=== PATIENT | male | born 1965 | race Hispanic/Latino ===

== ENCOUNTER 2021-12-18 08:22 | Outpatient (CLI) | payer BC ==
[2021-12-18] MEDS ORDERED: Iopamidol 370 76% 100 ML VIAL ONE (15:13)
== END 2021-12-18 08:23 | disposition home or self-care (01) ==
LOC: CT 08:22
PROVIDERS: ATTEND Internal Medicine
DX: D12.3 Benign neoplasm of transverse colon (principal); K76.0 Fatty (change of) liver, not elsewhere classified; K57.30 Diverticulosis of large intestine without perforation or abscess without bleeding; K63.89 Other specified diseases of intestine
CPT/HCPCS: 74177; Q9967

== ENCOUNTER 2022-01-09 13:13 | Outpatient (CLI) | payer BC ==
[2022-01-09 14:48] LABS: #Basophils 0.1 10x3/uL (0.0-0.2); #Eosinphils 0.1 10x3/uL (0.0-0.5); #Monocytes 0.9 10x3/uL (0.0-1.1); #Neutrophils 5.3 10x3/uL (1.5-8.4); %Basophils 0.6 % (0.0-2.0); %Lymphocytes 22.6 % (18.0-47.0); %Monocytes 11.1 % (0.0-10.0); %Neutrophils 64.5 % (40.0-75.0); Hemoglobin 14.9 g/dL (13.5-17.5); Mean Corpuscular HGB CONC 33.9 g/dL (32.0-36.0); Mean Corpuscular Hemoglobin 30.5 pg (27.0-33.0); Mean Corpuscular Volume 90.2 fl (81.2-95.1); Mean Platelet Volume 10.8 fl (7.4-10.4); Platelet Count 294 10x3/uL (150-450); RBC Distribution Width 13.6 % (11.5-14.5); Red Blood Cell (RBC) Count 4.88 10x6/uL (4.32-5.72); White Blood Cell (WBC) Count 8.3 10x3/uL (3.5-10.5)
[2022-01-09 15:05] LABS: Anion Gap 17 mmol/L (10-20); BUN (Urea Nitrogen) 10 mg/dL (8.4-25.7); Calc. Creatinine Clearance 0 mL/min (70-130); Calcium 9.7 mg/dL (7.8-10.44); Carbon Dioxide 25 mmol/L (22-29); Chloride 102 mmol/L (98-107); Glucose 83 mg/dL (70-105); Potassium 4.5 mmol/L (3.5-5.1); Sodium 139 mmol/L (136-145)
[2022-01-09 20:10] LABS: Hemoglobin A1c 5.2 % (4.0-6.0)
== END 2022-01-09 13:14 | disposition home or self-care (01) ==
LOC: LABBT 13:13
PROVIDERS: ATTEND Specialist
DX: Z01.812 Encounter for preprocedural laboratory examination (principal); D12.2 Benign neoplasm of ascending colon; Z20.822 Contact with and (suspected) exposure to COVID-19
CPT/HCPCS: 80048; 83036; 85025; U0003; U0005

== ENCOUNTER 2022-01-09 13:15 | Inpatient (IN) | payer BC ==
[2022-01-09 15:21] VITALS: BMI 29.2
[2022-01-14] MEDS ORDERED: Heparin 1,000 UNITS/ML VIAL ONE (10:50)
[2022-01-14] MEDS ORDERED: Acetaminophen 500 MG TAB ONE (11:25)
[2022-01-14] MEDS ORDERED: Ketorolac Tromethamine 30 MG/ML VIAL ONE (11:25)
[2022-01-14] MEDS ORDERED: Fentanyl 100 MCG/2 ML VIAL ONE (11:44)
[2022-01-14] MEDS ORDERED: Midazolam HCl 2 mg/2 ml Vial ONE (11:44)
[2022-01-14] MEDS ORDERED: Lidocaine 1% w/Epinephrine 1:100K 20 ML VIAL ONE (13:33)
[2022-01-14] MEDS ORDERED: fentaNYL Citrate/PF 100 MCG/2 ML SYRINGE ONE ×2 (14:16→14:17)
[2022-01-14] MEDS ORDERED: Sodium Chloride 0.9% 100 ML ONE (14:16)
[2022-01-14] MEDS ORDERED: cefOXitin 2 GM VIAL ONE (14:16)
[2022-01-14] MEDS ORDERED: Famotidine/PF 20 mg/2ml Vial ONE (14:17)
[2022-01-14] MEDS ORDERED: SUGAMMADEX SODIUM 200 MG/2 ML VIAL ONE (14:17)
[2022-01-14] MEDS ORDERED: Dexamethasone 20 MG/5 ML VIAL ONE (14:26)
[2022-01-14] MEDS ORDERED: Ondansetron PF 4 MG/2 ML Vial ONE (14:26)
[2022-01-14] MEDS ORDERED: Rocuronium Bromide 10 MG/ML (10ML VIAL) ONE (14:26)
[2022-01-14] MEDS ORDERED: Metoclopramide HCl 10 MG/2 ML VIAL ONE (14:26)
[2022-01-14] MEDS ORDERED: Phenylephrine 10 MG/ML VIAL ONE (14:26)
[2022-01-14] MEDS ORDERED: Lidocaine 1% PF 5 ML VIAL ONE (14:26)
[2022-01-14] MEDS ORDERED: PROPOFOL 200 MG/20 ML VIAL ONE (14:26)
[2022-01-14] MEDS ORDERED: Bupivacaine 0.25% HCL 30 ML VIAL ONE (14:27)
[2022-01-14] MEDS ORDERED: Indocyanine Green 25 MG/10 ML VIAL ONE (16:01)
[2022-01-14] MEDS ORDERED: HYDROmorphone 2 MG/ML VIAL SLOW IVP PRN (18:01)
[2022-01-14] MEDS ORDERED: Promethazine HCl 25 MG/ML VIAL IVPB PRN (18:01)
[2022-01-14] MEDS ORDERED: Meperidine HCl/PF 25 MG/ML VIAL SLOW IVP PRN ×2 (18:01)
[2022-01-14] MEDS ORDERED: Promethazine HCl 25 MG/ML VIAL IM PRN (18:01)
[2022-01-14] MEDS ORDERED: Ondansetron HCl/PF 4 MG/2 ML Vial IVP PRN (18:01)
[2022-01-14] MEDS ORDERED: hydrALAZINE 20 MG/ML VIAL SLOW IVP PRN (18:50)
[2022-01-14] MEDS: D5 1/2 NS w/20 mEq KCL 1,000 ML IV SCH (19:59)
[2022-01-14] MEDS: Famotidine 20 MG TAB PO SCH (20:00)
[2022-01-14] MEDS: Rosuvastatin 10 MG TAB PO SCH (22:15)
[2022-01-14] MEDS: Famotidine/PF 20 mg/2ml Vial SLOW IVP SCH (22:15)
[2022-01-14] MEDS: Ketorolac Tromethamine 30 MG/ML VIAL IVP SCH (23:33)
[2022-01-15] MEDS: D5 1/2 NS w/20 mEq KCL 1,000 ML IV SCH ×3 (03:30→23:58)
[2022-01-15] MEDS: Ketorolac Tromethamine 30 MG/ML VIAL IVP SCH ×2 (05:04→11:56)
[2022-01-15 05:23] LABS: #Lymphocytes 0.8 thou/uL (1.20-3.40); #Monocytes 0.6 thou/uL (0.11-0.59); #Neutrophils 9.4 thou/uL (1.40-6.50); %Basophils 0.1 % (0.0-1.0); %Eosinophils 0.1 % (0.0-10.0); %Lymphocytes 7.2 % (21.0-51.0); %Monocytes 5.4 % (0.0-10.0); %Neutrophils 87.3 % (42.0-75.0); Hemoglobin 13.4 g/dL (14.0-18.0); Mean Corpuscular HGB CONC 33.2 g/dL (32.0-36.0); Mean Corpuscular Hemoglobin 32.2 pg (27.0-31.0); Mean Platelet Volume 7.4 fL (7.4-10.4); Platelet Count 280 thou/uL (130-400); RBC Distribution Width 12.2 % (11.5-14.5); Red Blood Cell (RBC) Count 4.16 mill/uL (4.70-6.10); White Blood Cell (WBC) Count 10.7 thou/uL (4.8-10.8)
[2022-01-15 05:42] LABS: Anion Gap 13 mmol/L (10-20); BUN (Urea Nitrogen) 12 mg/dL (8.4-25.7); Calc. Creatinine Clearance 98 mL/min (70-130); Calcium 8.8 mg/dL (7.8-10.44); Carbon Dioxide 22 mmol/L (22-29); Chloride 103 mmol/L (98-107); Glucose 152 mg/dL (70-105); Potassium 4.4 mmol/L (3.5-5.1); Sodium 134 mmol/L (136-145)
[2022-01-15] MEDS ORDERED: Prevnar 13-Val Conj/PF 0.5 ML SYRINGE IM ONE (09:00)
[2022-01-15] MEDS ORDERED: Enoxaparin Sodium 40 MG/0.4 ML SYRINGE SC SCH (09:00)
[2022-01-15] MEDS: Famotidine 20 MG TAB PO SCH ×2 (09:44→19:51)
[2022-01-15] MEDS: Lisinopril 5 MG TAB PO SCH (09:45)
[2022-01-15] MEDS: Famotidine/PF 20 mg/2ml Vial SLOW IVP SCH ×2 (09:47→20:04)
[2022-01-15 14:08] LABS: #Lymphocytes 1.3 thou/uL (1.20-3.40); #Monocytes 1.2 thou/uL (0.11-0.59); #Neutrophils 9.9 thou/uL (1.40-6.50); %Basophils 0.1 % (0.0-1.0); %Eosinophils 0.2 % (0.0-10.0); %Lymphocytes 10.4 % (21.0-51.0); %Monocytes 9.9 % (0.0-10.0); %Neutrophils 79.4 % (42.0-75.0); Hemoglobin 12.1 g/dL (14.0-18.0); Mean Corpuscular HGB CONC 33.1 g/dL (32.0-36.0); Mean Corpuscular Hemoglobin 32.3 pg (27.0-31.0); Mean Corpuscular Volume 97.5 fL (78.0-98.0); Mean Platelet Volume 7.7 fL (7.4-10.4); Platelet Count 267 thou/uL (130-400); RBC Distribution Width 12.2 % (11.5-14.5); Red Blood Cell (RBC) Count 3.74 mill/uL (4.70-6.10); White Blood Cell (WBC) Count 12.5 thou/uL (4.8-10.8)
[2022-01-15] MEDS: Morphine 2 MG/ML VIAL SLOW IVP PRN (19:51)
[2022-01-15] MEDS: Rosuvastatin 10 MG TAB PO SCH (19:51)
[2022-01-15] MEDS: Morphine 4 MG/ML VIAL SLOW IVP PRN (22:49)
[2022-01-15] MEDS: Acetaminophen 325 MG TAB PO PRN (23:57)
[2022-01-16 06:20] LABS: #Lymphocytes 0.8 thou/uL (1.20-3.40); #Monocytes 0.8 thou/uL (0.11-0.59); #Neutrophils 14.9 thou/uL (1.40-6.50); %Basophils 0.1 % (0.0-1.0); %Eosinophils 0.1 % (0.0-10.0); %Lymphocytes 4.6 % (21.0-51.0); %Neutrophils 90.3 % (42.0-75.0); Hemoglobin 12.7 g/dL (14.0-18.0); Mean Corpuscular HGB CONC 32.6 g/dL (32.0-36.0); Mean Corpuscular Hemoglobin 31.7 pg (27.0-31.0); Mean Corpuscular Volume 97.2 fL (78.0-98.0); Mean Platelet Volume 8.1 fL (7.4-10.4); Platelet Count 268 thou/uL (130-400); RBC Distribution Width 12.2 % (11.5-14.5); White Blood Cell (WBC) Count 16.5 thou/uL (4.8-10.8)
[2022-01-16] MEDS: Acetaminophen 325 MG TAB PO PRN (06:35)
[2022-01-16] MEDS: Lisinopril 5 MG TAB PO SCH (08:26)
[2022-01-16] MEDS: Famotidine 20 MG TAB PO SCH ×2 (08:26→20:57)
[2022-01-16] MEDS: D5 1/2 NS w/20 mEq KCL 1,000 ML IV SCH ×3 (08:27→22:26)
[2022-01-16] MEDS: Morphine 4 MG/ML VIAL SLOW IVP PRN (09:12)
[2022-01-16] MEDS: Famotidine/PF 20 mg/2ml Vial SLOW IVP SCH ×2 (09:42→20:17)
[2022-01-16 10:32] LABS: ALT (SGPT) 21 U/L (8-55); AST (SGOT) 23 U/L (5-34); Albumin 3.7 g/dL (3.5-5.0); Alkaline Phosphatase 40 U/L (40-110); Anion Gap 15 mmol/L (10-20); BUN (Urea Nitrogen) 11 mg/dL (8.4-25.7); Calc. Creatinine Clearance 121 mL/min (70-130); Calcium 8.7 mg/dL (7.8-10.44); Carbon Dioxide 21 mmol/L (22-29); Chloride 104 mmol/L (98-107); Globulin 2.9 g/dL (2.4-3.5); Glucose 102 mg/dL (70-105); Potassium 4.2 mmol/L (3.5-5.1); Protein, Total 6.6 g/dL (6.0-8.3); Sodium 136 mmol/L (136-145)
[2022-01-16] MEDS ORDERED: HYDROcodone/Acetaminophen 7.5/325 mg Tablet PO PRN (17:38)
[2022-01-16] MEDS: Rosuvastatin 10 MG TAB PO SCH (20:57)
[2022-01-16] MEDS: HYDROcodone/Acetaminophen 7.5/325 mg Tablet PO PRN (20:58)
[2022-01-17] MEDS: D5 1/2 NS w/20 mEq KCL 1,000 ML IV SCH ×3 (04:48→20:36)
[2022-01-17] MEDS: HYDROcodone/Acetaminophen 7.5/325 mg Tablet PO PRN (04:52)
[2022-01-17] MEDS ORDERED: Calcium Carbonate 500 MG ChewTAB PO PRN (05:06)
[2022-01-17 05:28] LABS: #Eosinphils 0.1 thou/uL (0.0-0.7); #Lymphocytes 0.7 thou/uL (1.20-3.40); #Monocytes 1.2 thou/uL (0.11-0.59); #Neutrophils 13.5 thou/uL (1.40-6.50); %Basophils 0.1 % (0.0-1.0); %Eosinophils 0.5 % (0.0-10.0); %Lymphocytes 4.5 % (21.0-51.0); %Monocytes 7.8 % (0.0-10.0); %Neutrophils 87.2 % (42.0-75.0); Hemoglobin 12.5 g/dL (14.0-18.0); Mean Corpuscular HGB CONC 32.7 g/dL (32.0-36.0); Mean Corpuscular Hemoglobin 32.2 pg (27.0-31.0); Mean Corpuscular Volume 98.6 fL (78.0-98.0); Mean Platelet Volume 8.2 fL (7.4-10.4); Platelet Count 255 thou/uL (130-400); RBC Distribution Width 12.1 % (11.5-14.5); Red Blood Cell (RBC) Count 3.89 mill/uL (4.70-6.10); White Blood Cell (WBC) Count 15.5 thou/uL (4.8-10.8)
[2022-01-17 05:36] LABS: Anion Gap 10 mmol/L (10-20); BUN (Urea Nitrogen) 9 mg/dL (8.4-25.7); Calc. Creatinine Clearance 118 mL/min (70-130); Calcium 9.4 mg/dL (7.8-10.44); Carbon Dioxide 23 mmol/L (22-29); Chloride 101 mmol/L (98-107); Glucose 131 mg/dL (70-105); Potassium 4.4 mmol/L (3.5-5.1); Sodium 130 mmol/L (136-145)
[2022-01-17] MEDS: Ondansetron PF 4 MG/2 ML Vial IVP PRN (08:35)
[2022-01-17] MEDS ORDERED: Iopamidol-370 76% 500 ML 1 ML ONE (11:29)
[2022-01-17] MEDS: Famotidine 20 MG TAB PO SCH (11:35)
[2022-01-17] MEDS: Lisinopril 5 MG TAB PO SCH (11:35)
[2022-01-17] MEDS: Famotidine/PF 20 mg/2ml Vial SLOW IVP SCH ×2 (11:53→20:26)
[2022-01-17] MEDS ORDERED: Lidocaine 2% Jelly 5 ML TUBE ONE (13:35)
[2022-01-17] MEDS ORDERED: Bupivacaine 0.25% HCL 30 ML VIAL ONE (15:59)
[2022-01-17] MEDS ORDERED: Lidocaine 1% w/Epinephrine 1:100K 20 ML VIAL ONE (15:59)
[2022-01-17] MEDS ORDERED: HYDROmorphone 0.5 MG/0.5 ML SYRINGE ONE (16:01)
[2022-01-17] MEDS ORDERED: fentaNYL Citrate/PF 100 MCG/2 ML SYRINGE ONE (16:01)
[2022-01-17] MEDS ORDERED: Phenylephrine 10 MG/ML VIAL ONE (16:02)
[2022-01-17] MEDS ORDERED: Sodium Chloride 0.9% 100 ML ONE (16:08)
[2022-01-17] MEDS ORDERED: CEFAZOLIN 2 GM VIAL ONE (16:08)
[2022-01-17] MEDS ORDERED: Lidocaine 1% PF 5 ML VIAL ONE (16:18)
[2022-01-17] MEDS ORDERED: Rocuronium Bromide 10 MG/ML (10ML VIAL) ONE (16:18)
[2022-01-17] MEDS ORDERED: Dexamethasone 20 MG/5 ML VIAL ONE (16:18)
[2022-01-17] MEDS ORDERED: PROPOFOL 200 MG/20 ML VIAL ONE (16:18)
[2022-01-17] MEDS ORDERED: Ondansetron PF 4 MG/2 ML Vial ONE (16:18)
[2022-01-17] MEDS ORDERED: Ketorolac Tromethamine 30 MG/ML VIAL ONE (16:18)
[2022-01-17] MEDS ORDERED: SUGAMMADEX SODIUM 200 MG/2 ML VIAL ONE (17:43)
[2022-01-17] MEDS ORDERED: HYDROmorphone 2 MG/ML VIAL SLOW IVP PRN (18:20)
[2022-01-17] MEDS ORDERED: Ondansetron HCl/PF 4 MG/2 ML Vial IVP PRN (18:20)
[2022-01-17] MEDS ORDERED: Promethazine HCl 25 MG/ML VIAL IVPB PRN (18:20)
[2022-01-17] MEDS ORDERED: PACU-Morphine 4MG/ML VIAL SLOW IVP PRN (18:20)
[2022-01-17] MEDS ORDERED: Promethazine HCl 25 MG/ML VIAL IM PRN (18:20)
[2022-01-17] MEDS: Morphine 2 MG/ML VIAL SLOW IVP PRN (20:27)
[2022-01-18] MEDS: Morphine 2 MG/ML VIAL SLOW IVP PRN ×4 (01:29→14:08)
[2022-01-18] MEDS: D5 1/2 NS w/20 mEq KCL 1,000 ML IV SCH ×2 (04:07→14:45)
[2022-01-18 06:11] LABS: #Lymphocytes 0.3 thou/uL (1.20-3.40); #Monocytes 0.8 thou/uL (0.11-0.59); %Basophils 0.1 % (0.0-1.0); %Eosinophils 0.1 % (0.0-10.0); %Lymphocytes 3.5 % (21.0-51.0); %Monocytes 9.6 % (0.0-10.0); %Neutrophils 86.7 % (42.0-75.0); Hemoglobin 10.3 g/dL (14.0-18.0); Mean Corpuscular HGB CONC 32.6 g/dL (32.0-36.0); Mean Corpuscular Hemoglobin 32.2 pg (27.0-31.0); Mean Corpuscular Volume 98.9 fL (78.0-98.0); Mean Platelet Volume 8.3 fL (7.4-10.4); Platelet Count 243 thou/uL (130-400); RBC Distribution Width 12.1 % (11.5-14.5); Red Blood Cell (RBC) Count 3.19 mill/uL (4.70-6.10); White Blood Cell (WBC) Count 8.1 thou/uL (4.8-10.8)
[2022-01-18 06:52] LABS: Anion Gap 14 mmol/L (10-20); BUN (Urea Nitrogen) 20 mg/dL (8.4-25.7); Calc. Creatinine Clearance 106 mL/min (70-130); Calcium 8.9 mg/dL (7.8-10.44); Carbon Dioxide 24 mmol/L (22-29); Chloride 102 mmol/L (98-107); Glucose 130 mg/dL (70-105); Potassium 5.1 mmol/L (3.5-5.1); Sodium 135 mmol/L (136-145)
[2022-01-18] MEDS: Famotidine/PF 20 mg/2ml Vial SLOW IVP SCH ×2 (09:29→20:07)
[2022-01-18] MEDS: Dextrose 5 % And 0.9 % NaCl 1,000 ML IV SCH ×2 (14:09→20:16)
[2022-01-18] MEDS: chlorproMAZINE HCl 25 MG TAB PO PRN (16:50)
[2022-01-18] MEDS ORDERED: chlorproMAZINE HCl 25 MG TAB PO SCH (17:45)
[2022-01-18] MEDS ORDERED: Metoclopramide HCl 10 MG/2 ML VIAL IVP SCH (19:30)
[2022-01-18] MEDS: Morphine 4 MG/ML VIAL SLOW IVP PRN (19:32)
[2022-01-18] MEDS: Gabapentin 300 MG CAP PO PRN (21:43)
[2022-01-18] MEDS ORDERED: Lidocaine 2% Viscous Solution 20 ML, Aluminum & Magnesium Hydroxide 30 ML, Donnatal Eli... SSW SCH (23:00)
[2022-01-19] MEDS: chlorproMAZINE HCl 25 MG TAB PO PRN ×4 (01:44→23:20)
[2022-01-19] MEDS: Dextrose 5 % And 0.9 % NaCl 1,000 ML IV SCH ×3 (05:15→13:39)
[2022-01-19 06:36] LABS: BUN (Urea Nitrogen) 13 mg/dL (8.4-25.7); Calc. Creatinine Clearance 135 mL/min (70-130); Calcium 8.2 mg/dL (7.8-10.44); Carbon Dioxide 23 mmol/L (22-29); Chloride 102 mmol/L (98-107); Glucose 110 mg/dL (70-105); Potassium 3.9 mmol/L (3.5-5.1); Sodium 132 mmol/L (136-145)
[2022-01-19 06:42] LABS: Band 5 % (5-11); Eosinophils 1 % (0-10); Hemoglobin 10.1 g/dL (14.0-18.0); Hypochromia SLIGHT = 6-15 cells (100X) (0-5/hpf); Lymphocytes 8 % (21-51); MDiff Complete? YES; Mean Corpuscular HGB CONC 32.6 g/dL (32.0-36.0); Mean Corpuscular Volume 98.1 fL (78.0-98.0); Monocytes 18 % (0-10); Neutrophil 68 % (42-75); Platelet Count 297 thou/uL (130-400); Platelet Morphology Comment Appears Adequate; RBC Distribution Width 12.1 % (11.5-14.5); Red Blood Cell (RBC) Count 3.15 mill/uL (4.70-6.10); White Blood Cell (WBC) Count 5.9 thou/uL (4.8-10.8)
[2022-01-19 06:43] LABS: Anion Gap 11 mmol/L (10-20)
[2022-01-19] MEDS: Famotidine/PF 20 mg/2ml Vial SLOW IVP SCH ×2 (08:39→18:29)
[2022-01-19] MEDS: Morphine 2 MG/ML VIAL SLOW IVP PRN (11:41)
[2022-01-19] MEDS: Ondansetron PF 4 MG/2 ML Vial IVP PRN (11:48)
[2022-01-19] MEDS: Gabapentin 300 MG CAP PO PRN ×2 (16:34→23:23)
[2022-01-19] MEDS: Lidocaine 2% Viscous Solution 20 ML, Aluminum & Magnesium Hydroxide 30 ML, Donnatal Eli... SSW PRN (21:18)
[2022-01-20] MEDS: Morphine 2 MG/ML VIAL SLOW IVP PRN ×2 (01:31→20:20)
[2022-01-20] MEDS: Ondansetron PF 4 MG/2 ML Vial IVP PRN ×3 (03:20→20:20)
[2022-01-20] MEDS: Dextrose 5 % And 0.9 % NaCl 1,000 ML IV SCH ×2 (04:22→15:11)
[2022-01-20] MEDS: Promethazine HCl 25 MG/ML VIAL IM PRN ×2 (05:11→15:06)
[2022-01-20] MEDS: Famotidine/PF 20 mg/2ml Vial SLOW IVP SCH ×2 (08:36→20:20)
[2022-01-20] MEDS: Lidocaine 2% Viscous Solution 20 ML, Aluminum & Magnesium Hydroxide 30 ML, Donnatal Eli... SSW PRN (08:36)
[2022-01-20] MEDS: chlorproMAZINE HCl 25 MG TAB PO PRN (22:48)
[2022-01-21] MEDS: Dextrose 5 % And 0.9 % NaCl 1,000 ML IV SCH ×4 (00:02→18:00)
[2022-01-21] MEDS: Promethazine HCl 25 MG/ML VIAL IM PRN ×2 (03:18→20:17)
[2022-01-21] MEDS: Gabapentin 300 MG CAP PO PRN (03:26)
[2022-01-21 06:04] LABS: Anion Gap 13 mmol/L (10-20); BUN (Urea Nitrogen) 15 mg/dL (8.4-25.7); Calc. Creatinine Clearance 130 mL/min (70-130); Calcium 8.5 mg/dL (7.8-10.44); Carbon Dioxide 28 mmol/L (22-29); Chloride 99 mmol/L (98-107); Glucose 118 mg/dL (70-105); Potassium 3.8 mmol/L (3.5-5.1); Sodium 136 mmol/L (136-145)
[2022-01-21 06:16] LABS: Band 5 % (5-11); Eosinophils 1 % (0-10); Hemoglobin 10.7 g/dL (14.0-18.0); Hypochromia SLIGHT = 6-15 cells (100X) (0-5/hpf); Lymphocytes 2 % (21-51); MDiff Complete? YES; Mean Corpuscular HGB CONC 32.7 g/dL (32.0-36.0); Mean Corpuscular Hemoglobin 32.2 pg (27.0-31.0); Mean Corpuscular Volume 98.4 fL (78.0-98.0); Mean Platelet Volume 7.3 fL (7.4-10.4); Monocytes 16 % (0-10); Neutrophil 76 % (42-75); Platelet Count 446 thou/uL (130-400); Platelet Morphology Comment Appears Increased; RBC Distribution Width 12.1 % (11.5-14.5); Red Blood Cell (RBC) Count 3.33 mill/uL (4.70-6.10); White Blood Cell (WBC) Count 12.6 thou/uL (4.8-10.8)
[2022-01-21] MEDS: Famotidine/PF 20 mg/2ml Vial SLOW IVP SCH ×2 (08:09→20:17)
[2022-01-21] MEDS: Ondansetron PF 4 MG/2 ML Vial IVP PRN ×2 (09:20→16:56)
[2022-01-21] MEDS: Morphine 2 MG/ML VIAL SLOW IVP PRN ×3 (11:45→20:16)
[2022-01-21] MEDS ORDERED: Iopamidol-370 76% 500 ML 1 ML ONE (13:41)
[2022-01-21] MEDS: Lidocaine 2% Viscous Solution 20 ML, Aluminum & Magnesium Hydroxide 30 ML, Donnatal Eli... SSW PRN (14:45)
[2022-01-22] MEDS: Morphine 2 MG/ML VIAL SLOW IVP PRN ×3 (01:20→15:22)
[2022-01-22] MEDS: Ondansetron PF 4 MG/2 ML Vial IVP PRN ×2 (01:21→15:37)
[2022-01-22] MEDS: Dextrose 5 % And 0.9 % NaCl 1,000 ML IV SCH ×2 (05:21→18:41)
[2022-01-22 06:20] LABS: Band 1 % (5-11); Hemoglobin 10.5 g/dL (14.0-18.0); Hypochromia SLIGHT = 6-15 cells (100X) (0-5/hpf); Lymphocytes 9 % (21-51); MDiff Complete? YES; Mean Corpuscular HGB CONC 32.9 g/dL (32.0-36.0); Mean Corpuscular Hemoglobin 32.2 pg (27.0-31.0); Mean Corpuscular Volume 97.9 fL (78.0-98.0); Mean Platelet Volume 7.1 fL (7.4-10.4); Monocytes 6 % (0-10); Neutrophil 84 % (42-75); Platelet Count 535 thou/uL (130-400); Platelet Morphology Comment Appears Increased; RBC Distribution Width 12.1 % (11.5-14.5); Red Blood Cell (RBC) Count 3.26 mill/uL (4.70-6.10); White Blood Cell (WBC) Count 12.2 thou/uL (4.8-10.8)
[2022-01-22] MEDS: Famotidine/PF 20 mg/2ml Vial SLOW IVP SCH ×3 (09:09→21:09)
[2022-01-22 10:13] LABS: SARS-CoV-2 NAA Rapid Test Not Detected (NotDetected)
[2022-01-22] MEDS ORDERED: MD-Gastroview 120 ML BOT ONE (13:23)
[2022-01-22] MEDS: Morphine 4 MG/ML VIAL SLOW IVP PRN (21:09)
[2022-01-22] MEDS: Gabapentin 300 MG CAP PO PRN (21:09)
[2022-01-23] MEDS: Morphine 2 MG/ML VIAL SLOW IVP PRN ×3 (02:25→21:02)
[2022-01-23] MEDS: Famotidine/PF 20 mg/2ml Vial SLOW IVP SCH ×2 (08:30→20:58)
[2022-01-23] MEDS: Morphine 4 MG/ML VIAL SLOW IVP PRN (08:31)
[2022-01-23] MEDS: Ondansetron PF 4 MG/2 ML Vial IVP PRN ×2 (08:31→20:58)
[2022-01-23] MEDS: Dextrose 5 % And 0.9 % NaCl 1,000 ML IV SCH ×2 (11:10→19:00)
[2022-01-23] MEDS ORDERED: Fat Emulsion 250 ML IVPB SCH (14:00)
[2022-01-23] MEDS ORDERED: SODIUM CHLORIDE IV SCH ×2 (14:00)
[2022-01-23] MEDS ORDERED: MULTITRACE IV SCH ×2 (14:00)
[2022-01-23] MEDS ORDERED: [UNRECOGNIZED DRUG - OTHER] IV SCH ×2 (14:00)
[2022-01-23] MEDS ORDERED: MULTIVITAMINS IV SCH ×2 (14:00)
[2022-01-23] MEDS: [UNRECOGNIZED DRUG - OTHER] IV SCH (15:54)
[2022-01-23] MEDS: TRACE ELEMENT IV SCH (15:54)
[2022-01-23] MEDS: MULTIVITAMINS IV SCH (15:54)
[2022-01-23] MEDS: SODIUM CHLORIDE IV SCH (15:54)
[2022-01-23] MEDS: Mag-Al 1200 mg/1200 mg/30 ML UDCUP PO PRN (18:53)
[2022-01-24] MEDS: Morphine 4 MG/ML VIAL SLOW IVP PRN (01:37)
[2022-01-24] MEDS: Dextrose 5 % And 0.9 % NaCl 1,000 ML IV SCH ×3 (04:36→20:55)
[2022-01-24 06:35] LABS: ALT (SGPT) 40 U/L (8-55); AST (SGOT) 27 U/L (5-34); Albumin 3.1 g/dL (3.5-5.0); Alkaline Phosphatase 99 U/L (40-110); Anion Gap 11 mmol/L (10-20); BUN (Urea Nitrogen) 15 mg/dL (8.4-25.7); Bilirubin, Total 0.5 mg/dL (0.2-1.2); Calc. Creatinine Clearance 139 mL/min (70-130); Calcium 8.6 mg/dL (7.8-10.44); Carbon Dioxide 29 mmol/L (22-29); Chloride 104 mmol/L (98-107); Estimated GFR 108; Globulin 2.9 g/dL (2.4-3.5); Glucose 104 mg/dL (70-105); Magnesium 2.3 mg/dL (1.6-2.6); Phosphorus 3.5 mg/dL (2.3-4.7); Potassium 3.5 mmol/L (3.5-5.1); Sodium 140 mmol/L (136-145)
[2022-01-24 07:43] LABS: #Eosinphils 0.3 thou/uL (0.0-0.7); #Lymphocytes 1.4 thou/uL (1.20-3.40); #Monocytes 1.4 thou/uL (0.11-0.59); #Neutrophils 10.2 thou/uL (1.40-6.50); %Basophils 0.2 % (0.0-1.0); %Lymphocytes 10.6 % (21.0-51.0); %Monocytes 10.5 % (0.0-10.0); %Neutrophils 76.7 % (42.0-75.0); Hemoglobin 10.6 g/dL (14.0-18.0); Mean Corpuscular HGB CONC 31.7 g/dL (32.0-36.0); Mean Corpuscular Hemoglobin 31.4 pg (27.0-31.0); Mean Corpuscular Volume 98.9 fL (78.0-98.0); Mean Platelet Volume 6.8 fL (7.4-10.4); Platelet Count 654 thou/uL (130-400); RBC Distribution Width 12.1 % (11.5-14.5); Red Blood Cell (RBC) Count 3.36 mill/uL (4.70-6.10); White Blood Cell (WBC) Count 13.3 thou/uL (4.8-10.8)
[2022-01-24] MEDS: Famotidine/PF 20 mg/2ml Vial SLOW IVP SCH ×2 (09:56→20:49)
[2022-01-24] MEDS ORDERED: [UNRECOGNIZED DRUG - OTHER] IV SCH (14:00)
[2022-01-24] MEDS ORDERED: SODIUM CHLORIDE IV SCH (14:00)
[2022-01-24] MEDS ORDERED: TRACE ELEMENT IV SCH (14:00)
[2022-01-24] MEDS ORDERED: MULTIVITAMINS IV SCH (14:00)
[2022-01-24] MEDS: Mag-Al 1200 mg/1200 mg/30 ML UDCUP PO PRN (20:48)
[2022-01-25 07:30] LABS: #Basophils 0.1 thou/uL (0.0-0.2); #Eosinphils 0.3 thou/uL (0.0-0.7); #Lymphocytes 1.3 thou/uL (1.20-3.40); #Monocytes 1.2 thou/uL (0.11-0.59); #Neutrophils 11.4 thou/uL (1.40-6.50); %Basophils 0.5 % (0.0-1.0); %Eosinophils 1.8 % (0.0-10.0); %Monocytes 8.5 % (0.0-10.0); %Neutrophils 80.2 % (42.0-75.0); Hemoglobin 11.2 g/dL (14.0-18.0); Mean Corpuscular HGB CONC 31.9 g/dL (32.0-36.0); Mean Corpuscular Hemoglobin 31.2 pg (27.0-31.0); Mean Corpuscular Volume 97.7 fL (78.0-98.0); Mean Platelet Volume 6.9 fL (7.4-10.4); Platelet Count 654 thou/uL (130-400); RBC Distribution Width 11.9 % (11.5-14.5); Red Blood Cell (RBC) Count 3.58 mill/uL (4.70-6.10); White Blood Cell (WBC) Count 14.2 thou/uL (4.8-10.8)
[2022-01-25] MEDS: Famotidine/PF 20 mg/2ml Vial SLOW IVP SCH ×2 (08:42→21:06)
[2022-01-25] MEDS: SODIUM CHLORIDE IV SCH (15:43)
[2022-01-25] MEDS: [UNRECOGNIZED DRUG - OTHER] IV SCH (15:43)
[2022-01-25] MEDS: TRACE ELEMENT IV SCH (15:43)
[2022-01-25] MEDS: MULTIVITAMINS IV SCH (15:43)
[2022-01-25] MEDS: Mag-Al 1200 mg/1200 mg/30 ML UDCUP PO PRN (20:40)
[2022-01-26 05:54] LABS: #Eosinphils 0.3 thou/uL (0.0-0.7); #Lymphocytes 1.5 thou/uL (1.20-3.40); #Monocytes 1.2 thou/uL (0.11-0.59); #Neutrophils 13.8 thou/uL (1.40-6.50); %Basophils 0.2 % (0.0-1.0); %Eosinophils 1.7 % (0.0-10.0); %Monocytes 7.4 % (0.0-10.0); %Neutrophils 81.8 % (42.0-75.0); Hemoglobin 10.9 g/dL (14.0-18.0); Mean Corpuscular HGB CONC 32.3 g/dL (32.0-36.0); Mean Corpuscular Hemoglobin 31.7 pg (27.0-31.0); Mean Corpuscular Volume 97.9 fL (78.0-98.0); Mean Platelet Volume 6.8 fL (7.4-10.4); Platelet Count 579 thou/uL (130-400); RBC Distribution Width 11.9 % (11.5-14.5); Red Blood Cell (RBC) Count 3.43 mill/uL (4.70-6.10); White Blood Cell (WBC) Count 16.8 thou/uL (4.8-10.8)
[2022-01-26] MEDS: Famotidine/PF 20 mg/2ml Vial SLOW IVP SCH (09:04)
[2022-01-26 13:07] VITALS: BP 115/72; TEMP 98.4
== END 2022-01-26 14:23 | disposition home or self-care (01) | DRG 330 ==
LOC: SURG A 01-14 10:14 → SURG B 01-14 19:12
PROVIDERS: ADMIT Specialist; ATTEND Specialist
PROC: 0DTF0ZZ Resection of Right Large Intestine, Open Approach (ICD-10-PCS; principal; 2022-01-14)
PROC: 8E0W0CZ Robotic Assisted Procedure of Trunk Region, Open Approach (ICD-10-PCS; 2022-01-14)
PROC: 0DU Gastrointestinal System, Supplement (ICD-10-PCS; 2022-01-17)
PROC: 0D9670Z Drainage of Stomach with Drainage Device, Via Natural or Artificial Opening (ICD-10-PCS; 2022-01-20)
PROC: 02HV33Z Insertion of Infusion Device into Superior Vena Cava, Percutaneous Approach (ICD-10-PCS; 2022-01-23)
PROC: B548ZZA Ultrasonography of Superior Vena Cava, Guidance (ICD-10-PCS; 2022-01-23)
PROC: B5181ZA Fluoroscopy of Superior Vena Cava using Low Osmolar Contrast, Guidance (ICD-10-PCS; 2022-01-23)
PROC: 3E0436Z Introduction of Nutritional Substance into Central Vein, Percutaneous Approach (ICD-10-PCS; 2022-01-23)
DX: D12.2 Benign neoplasm of ascending colon (principal); Z20.822 Contact with and (suspected) exposure to COVID-19; K45.0 Other specified abdominal hernia with obstruction, without gangrene; K56.7 Ileus, unspecified; F17.210 Nicotine dependence, cigarettes, uncomplicated; F12.10 Cannabis abuse, uncomplicated; Z79.899 Other long term (current) drug therapy; Z86.16 Personal history of COVID-19; Z98.890 Other specified postprocedural states; Z83.3 Family history of diabetes mellitus; Z82.49 Family history of ischemic heart disease and other diseases of the circulatory system; Z80.41 Family history of malignant neoplasm of ovary
CPT/HCPCS: 36415; 36416; 36569; 74018; 74177; 74250; 80048; 80053; 83735; 84100; 85025; 88307; C1751; J0690; J0694; J1100; J1170; J1644; J1650; J1815; J1885; J2250; J2270; J2370; J2405; J2550; J2704; J2765; J3010; J3480; J3490; J7042; Q0161; Q9963; Q9967; S0020; S0028; U0002